=== PATIENT | female | born 1990 | race Caucasian/White ===

== ENCOUNTER 2017-05-21 14:32 | Emergency (ER) | payer OTHER ==
[2017-05-21] MEDS: IBUPROFEN 800 MG TAB PO (17:07)
== END 2017-05-21 18:31 | disposition home or self-care (01) ==
LOC: M ED 14:32
DX: S83.001A Unspecified subluxation of right patella, initial encounter (principal); X58.XXXA Exposure to other specified factors, initial encounter; Y92.238 Other place in hospital as the place of occurrence of the external cause; Y93.89 Activity, other specified; Y99.0 Civilian activity done for income or pay
CPT/HCPCS: 73564

== ENCOUNTER → 2017-06-13 | Outpatient (REF) | payer OTHER | LOC: M SFHCLERA 11:32 | DX: J02.9 Acute pharyngitis, unspecified (principal) ==

== ENCOUNTER → 2017-07-02 | Outpatient (REF) | payer OTHER | LOC: M SFHCLERA 20:39 | DX: R53.81 Other malaise (principal) ==

== ENCOUNTER 2017-12-05 09:48 | Outpatient (REF) | payer OTHER | END 2017-12-19 | LOC: M SFHCLERA 09:48 | DX: J02.9 Acute pharyngitis, unspecified (principal) ==

== ENCOUNTER → 2017-12-20 | Outpatient (REF) | payer OTHER | LOC: M SFHCLUC 11:31 | DX: J02.9 Acute pharyngitis, unspecified (principal) ==

== ENCOUNTER → 2018-01-08 | Outpatient (REF) | payer OTHER | LOC: M SFHCLERA 20:13 | DX: J02.9 Acute pharyngitis, unspecified (principal) ==

== ENCOUNTER → 2018-02-19 | Outpatient (REF) | payer OTHER ==
[2018-02-20 14:26] LABS: CHLAMYDIA DNA AMPLIFICATION NEGATIVE (NEGATIVE); GC DNA AMPLIFICATION NEGATIVE (NEGATIVE)
== END ==
LOC: M SFHCLERA 18:14
DX: R10.9 Unspecified abdominal pain (principal)
CPT/HCPCS: 87086

== ENCOUNTER → 2018-02-19 | Outpatient (CLI) | payer OTHER | LOC: M LRY 18:19 | DX: M41.35 Thoracogenic scoliosis, thoracolumbar region (principal); R10.9 Unspecified abdominal pain | CPT/HCPCS: 87591 ==

== ENCOUNTER → 2018-03-09 | Outpatient (REF) | payer OTHER ==
[~2018-03-09] MED LIST: TYLE325T5 PO
== END ==
LOC: M SFHCLERA 10:50
PROVIDERS: ATTEND Nurse Practitioner Family
DX: J02.9 Acute pharyngitis, unspecified (principal)